=== PATIENT | female | born 1955 | race Caucasian/White ===

== ENCOUNTER 2016-10-04 13:28 | Emergency (ER) | payer OTHER ==
[~2016-10-04] VITALS: Ht 177.8 cm; Wt 109.1 kg
[2016-10-04 13:39] VITALS: BP 130/76; PULSE 63; RESP 16; O2SAT 100
--- NOTE | 2016-10-04 13:50 | ED.REPORT ---
HPI-NVD Date of Service Oct 04, 2016 ED Provider: Tony aDvey DO 61 year old female with a history of polycystic kidney disease and kidney stones presents to the ER complaining of abdominal pain onset upon awakening this morning. Associated symptoms include dizziness, nausea, vomiting, shaking chills, hot flashes, and diaphoresis. Patient denies fever, smoking, and alcohol use. She was seen at urgent care earlier today where she received IV medications and was referred to the ER. History of similar, for which she is prescribed promethazine, however today's symptoms are worse than typical. Nursing Notes Stated Complaint: VOMITING Chief Complaint: General Complaint Nursing Notes Reviewed: Yes Allergies: Coded Allergies: codeine (Verified Allergy, Intermediate, GI UPSET, 10/04/16) iodine (Verified Allergy, Mild, Rash,Itching,SOB, 10/04/16) Patient had a mild reaction to Injection Iodine Contrast from her CT scan Penicillins (Verified Allergy, Unknown, ALLERGIES A CHILD, 10/04/16) General Time Seen by MD: 13:50 Chief Complaint Abd pain, constant Hx Obtained From: Patient Arrived By: Walk-in Onset Occurred: 5 - 8 hours ago Symptom Duration: Since onset Location: : Diffuse Quality: Painful Severity: Current: Moderate Severity: Maximum: Moderate Similar Sx Previous: Yes Past Medical History Past Medical History Polycystic kidney disease Kidney stones Past Surgical History Reports: Knee replacement (Right) Smoking History Never Smoker Social History Alcohol Use: Denies alcohol use Drug Use: Denies drug use Ambulatory Status Independent Review of Systems Constitutional: Reports: Chills, Denies: Fever GI: Reports: Abdominal pain, Nausea, Vomiting, Denies: Diarrhea, Hematemesis, Hematochezia Skin: Reports Diaphoresis Neurologic: Reports: Dizziness, Shaking Complete sys rev & neg: except as marked. Female: Denies: Dysuria, Flank pain Physical Exam Initial Vital Signs Vital Signs (First) Date Time Temp Pulse Resp B/P Pulse Ox O2 Delivery O2 Flow Rate FiO2 10/04/16 13:39 35.8 63 16 130/76 100 Room Air Initial VS: Reviewed Head / Eyes: Atraumatic, Normocephalic Neck: Supple, Non-tender, Full range of motion Extremities: Vascular intact, Neuro intact, No swelling, No tenderness Skin: Warm, Dry, No cyanosis General/Constitutional: Awake, Alert, Well developed, Well nourished Abdomen: Soft, Non-tender, No guarding, No rebound, No distention Respiratory / Chest: Breath sounds NL, Breath sounds = bilat, No respiratory distress, No rales, No rhonchi, No wheezing Cardiovascular: Heart rate NL, Regular rhythm, Heart sounds NL, Peripheral circulation NL Back: Inspection NL, Non-tender, No CVA tenderness Neurologic: Oriented X3, Speech NL, No motor deficits, No sensory deficits Tremulous. Interpretation & Diagnostics Lab Results Interpretation Result Diagram: 10/04/16 1420 Test 10/04/16 14:20 10/04/16 14:36 White Blood Count 6.0th/mm3 (3.8-10.1) Red Blood Count 4.11mil/mm3 (3.90-5.20) Hemoglobin 12.7g/dL (12.0-15.6) Hematocrit 38.0% (35.0-46.0) Mean Corpuscular Volume 92.5fL (81-100) Mean Corpuscular Hemoglobin 30.9pg (27.0-35.0) Mean Corpuscular Hemoglobin Concent 33.4% (32.0-37.0) Red Cell Distribution Width 12.9% (12.3-15.4) Platelet Count 236bil/L (150-400) Neutrophils (%) (Auto) 75.7% (40-74) Lymphocytes (%) (Auto) 20.1% (14-46) Monocytes (%) (Auto) 3.5% (4-12) Eosinophils (%) (Auto) 0.3% (0-5) Basophils (%) (Auto) 0.2% (0-3) Hold Del Cid Top Tube Received (Received) Re-Eval/Medical Decision Med Decision/Clinical Course Vomiting of unclear etiology. Currently awaiting diagnostic evaluation. Care transferred to Dr. Avilez. Source of Hx: Old records Discharge & Departure Shift Change Sign-Out Patient Care Transferred: Yes Discussed Complaint(s): Yes Discharge Condition All VS Reviewed: Yes Condition: Stable Referrals: Darryn Rodriguez MD (PCP) Care Transferred to: Dr. Avilez Care Transferred at: 15:02 Scribe Attestation Portions of this note were transcribed by Kenny Moreno. I, Dr. Davey, personally performed the history, physical exam and medical decision-making; I reviewed and confirmed the accuracy of the information in the transcribed note. Signed by: Karen Nunes, 10/04/2016 and 15:02 copies to: Darryn Rodriguez MD, Timothy S DO Oct 04, 2016 13:50 KENNY MORENO Oct 04, 2016 14:06
[2016-10-04] MEDS ORDERED: 0.9% Sodium Chloride 1,000 ML IV ONE (14:06)
[2016-10-04] MEDS ORDERED: Ketorolac 15 mg/mL Inj IVPUSH ONE (14:10)
[2016-10-04] MEDS ORDERED: Promethazine Inj 25 MG in 0.9% Sodium Chloride 50 ML IV ONE (14:10)
[2016-10-04 14:31] LABS: BASOPHILS % (AUTO) 0.2 % (0-3); EOSINOPHILS % (AUTO) 0.3 % (0-5); MONOCYTES % (AUTO) 3.5 % (4-12); Mean Corpuscular Hemoglobin 30.9 pg (27.0-35.0); Mean Corpuscular Volume 92.5 fL (81-100); NEUTROPHILS % (AUTO) 75.7 % (40-74); Platelet Count 236 bil/L (150-400)
[2016-10-04 15:02] LABS: Magnesium 1.8 mg/dL (1.6-2.6)
[2016-10-04] MEDS ORDERED: Ondansetron 2 mg/mL 2 mL Inj IVPUSH ONE (16:50)
[2016-10-04 16:58] VITALS: BP 121/61; PULSE 87; RESP 18; O2SAT 95
[2016-10-04] MEDS ORDERED: Haloperidol 5 mg/mL Inj IVPUSH ONE (17:40)
[2016-10-04 17:47] LABS: APPEARANCE,URINE CLEAR (CLEAR,HAZY); COLOR,URINE YELLOW (YELLOW); OCCULT BLOOD,URINE SMALL (NEGATIVE); UROBILINOGEN,URINE NORMAL (NORMAL)
--- NOTE | 2016-10-04 18:36 | DRSVH ---
PROCEDURE: CT KUB ([id number]) INDICATIONS: hematuria and vomiting TECHNIQUE: Noncontrast 5 mm thick sections acquired from the diaphragms to the symphysis. 5 mm thick coronal an d sagittal reformats were then performed. For radiation dose reduction, the following was used: aut omated exposure control, adjustment of mA and/or kV according to patient size. COMPARISON: None. FINDINGS: Image quality: Excellent. Lung bases: Lung bases are clear. Heart size is normal. Urinary system: Both kidneys are normal in size. Superiorly in the left kidney centrally is an 11 mm calcification nonobstructing inferiorly and centrally on the right is a one or 2 mm calcification ce ntrally and nonobstructing. No hydronephrosis or perinephric fat stranding. Both ureters appear non- dilated throughout their expected courses. Bladder is nearly empty suggesting the patient voided kiersten or to the study. No stones are seen in the bladder. Other solid organs: Liver and spleen are normal in size. Gallbladder is within normal limits.. Huffman creas is normal in contours. No adrenal nodules. Peritoneum and bowel: Unenhanced bowel loops demonstrate normal wall thickness and caliber. No free fluid or air. Colonic diverticula without diverticulitis are noted. A normal appendix is present. Nodes and vessels: No retroperitoneal or mesenteric adenopathy by size criteria. Aorta and inferior vena cava are normal in caliber. Abdominal wall: No ventral hernias. Pelvis: No free pelvic fluid. No inguinal hernias or adenopathy. Bones: No suspicious bony lesions. No vertebral body compression fractures. IMPRESSION: 1. In the kidneys there is found to be a Central 11 mm stone in the left nonobstructing and a central one or 2 mm stone in the right nonobstructing . 2. Multiple colonic diverticula without diverticulitis. 3. 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 Dictated by: Holland Anderson M.D. on 10/04/2016 at 18:25 Approved by: Holland Anderson M.D. on 10/04/2016 at 18:34
[2016-10-04] MEDS ORDERED: MECL-114 PO (20:49)
[2016-10-04] MEDS ORDERED: PROM25SU47 RECTAL (20:49)
[2016-10-04 21:15] VITALS: BP 117/61; PULSE 87; RESP 23; O2SAT 97
== END 2016-10-04 21:20 | disposition home or self-care (01) ==
LOC: SED 13:28
DX: R10.9 Unspecified abdominal pain (principal); R11.2 Nausea with vomiting, unspecified; N20.0 Calculus of kidney; K57.30 Diverticulosis of large intestine without perforation or abscess without bleeding; Q61.3 Polycystic kidney, unspecified; Z87.442 Personal history of urinary calculi; Z88.0 Allergy status to penicillin; Z88.5 Allergy status to narcotic agent
CPT/HCPCS: 36415; 74176; 80053; 81000; 83690; 83735; 85025; 96374; 96375; 99285; J1200; J1630; J1885; J2060; J2405; J2550; J7030